=== PATIENT | male | born 1985 | race Caucasian/White ===

== ENCOUNTER 2025-03-05 12:24 | Emergency (ER) | payer MEDICAID, SELFPAY ==
[2025-03-05 12:26] VITALS: BP 156/95; PULSE 73; RESP 16; TEMP 36.6; O2SAT 97
[2025-03-05] MEDS: Acetaminophen 500 MG TAB 1000 MG PO (13:03)
[2025-03-05] MEDS: Ketorolac 15 MG/ML VIAL IM (13:03)
--- NOTE | 2025-03-05 13:05 | W.ED.GENAD ---
Discharge Plan Disposition Patient Disposition: Home Discharge Details Clinical Impression: Acute myofascial pain ED Provider: Yadiel Gilliam Home Meds and New Rx's Prescriptions: New naproxen 500 mg tablet 500 mg PO BID PRNQty: 14 0RF cyclobenzaprine 5 mg tablet 5 mg PO QHS PRNQty: 7 0RF acetaminophen [Tylenol] 325 mg tablet 975 mg PO ONCE PRNQty: 60 0RF Continued multivitamin [Daily Multi-Vitamin] Tablet 1 tab PO DAILY omeprazole 20 mg capsule,delayed release(DR/EC) 20 mg PO DAILY Discharge Instructions Instructions: Dry Needling Additional Instructions: Please follow-up with your primary care provider regarding your visit to the emergency department today. Be sure to discuss results of all test performed here today to include radiology, and laboratory testing as well as results for any pending cultures. Should your symptoms worsen, or if you develop new concerning symptoms, please return immediately emergency department for further evaluation. HPI General Date/Time Provider Initiated Documentation: 03/05/25 12:43. HPI Narrative: MDM/Narrative: 39-year-old male with back pain likely due to muscle strain from lifting. Differential Diagnosis: - Myofascial pain syndrome: Muscle strain causing tension and inflammation. Trigger point injection administered. Continue Tylenol, NSAIDs, Flexeril at night if sleep disturbances persist. ED Course: - Trigger point injection administered Final Assessment: Back pain likely due to muscle strain from lifting. Trigger point injection administered. Continue Tylenol, NSAIDs, Flexeril at night if sleep disturbances persist. Clinical Impression: - Myofascial pain syndrome Patient Education: Discussed trigger point injection, Tylenol, NSAIDs, Flexeril for sleep disturbances. This document was created with assistance from [employer]. The patient consented to its use. HPI: The patient is a 39-year-old male with a history of lumbar spine surgery, presenting with acute lumbar pain. The onset of lumbar pain occurred on Friday or Friday following the lifting of his toddler and a bicycle. The pain is localized to the lower back and occasionally radiates. It disrupts his sleep. The use of a massager results in the migration of pain. Ibuprofen provides minimal analgesic effect, while the application of ice and IcyHot offers some symptomatic relief. During exacerbations, he resorts to sleeping on the couch. The patient denies a history of hypertension or diabetes mellitus. He is overweight and recently celebrated his 39th birthday. He reports good cardiovascular health. The patient has a history of microdiscectomy and laminectomy at the L5-S1 level performed in 2014 due to sciatic pain and toe immobility. He experienced a favorable postoperative recovery, returning to work within five days. Physical therapy was beneficial in his recovery. Additionally, the patient has a history of a superior labrum anterior to posterior (SLAP) tear in the labrum, with surgery initially planned for August 2019 but not performed. He occasionally experiences deep-seated pain in the back associated with the labral injury. PAST SURGICAL HISTORY: Microdiscectomy and laminectomy at L5-S1 in 2014. ROS: Negative besides as mentioned above Exam: Vital signs: Reviewed. General Appearance: Alert and oriented. No acute distress. HEENT: NCAT, EOMI, not icteric. External ears normal. No rhinorrhea. Moist mucous membranes. Neck: Supple, full range of motion, no observable masses, No meningeal sign. Respiratory: No Respiratory distress. No tachypnea. Cardiovascular: RRR, no edema. Gastrointestinal: Soft, nondistended, No rebound tenderness. Back: No midline tenderness to palpation or palpable step-offs of the C/T/L spine. Left thoracic spinal erecta. Musculoskeletal: Increased muscle tension in lower back compared to contralateral side. Skin: Warm and dry, no rash. Neurological: Normal Gait, Grossly intact. Psychiatric: Appropriate for situation. No memory reproducible tenderness and muscle spasm of the PROCEDURE: Trigger Point Injection. ANESTHESIA: 4 ml of 1% Lidocine with epinephrine was injected subcutaneously into 2 areas of palpable spasm in the left spinal erecta COMPLICATIONS: None. DESCRIPTION OF PROCEDURE: The procedure risks, hazards and alternatives were discussed with the patient and a proper consent was obtained. The area over the myofascial spasm was prepped with alcohol utilizing sterile technique. After isolating it between two palpating fingertips a 30-gauge needle was placed in the center of the myofascial spasms and a negative aspiration was performed. Then 2 cc of Lidocaine 1% with epi was injected into each trigger point. The patient tolerated the procedure well without any apparent difficulties or complications. Related Data Home Medications ?Medication ?Instructions ?Recorded ?Confirmed acetaminophen 325 mg tablet 975 mg (3 x 325 mg) PO ONCE PRN 03/05/25 (Tylenol) #60 tabs cyclobenzaprine 5 mg tablet 5 mg PO QHS PRN #7 tabs 03/05/25 multivitamin (Daily Multi-Vitamin 1 tab PO DAILY 03/05/25 03/05/25 tablet) naproxen 500 mg tablet 500 mg PO BID PRN #14 tabs 03/05/25 omeprazole 20 mg capsule,delayed 20 mg PO DAILY 03/05/25 03/05/25 release Previous Rx's ?Medication ?Instructions ?Recorded acetaminophen 325 mg tablet 975 mg (3 x 325 mg) PO ONCE PRN 03/05/25 (Tylenol) #60 tabs cyclobenzaprine 5 mg tablet 5 mg PO QHS PRN #7 tabs 03/05/25 naproxen 500 mg tablet 500 mg PO BID PRN #14 tabs 03/05/25 Allergies Allergy/AdvReac Type Severity Reaction Status Date / Time No Known Allergies Allergy Verified 03/05/25 12:26 General Stated Complaint: Nk/Back Pain LIS: 4 Course Vital Signs Vital signs: Vital Signs Temperature 36.6 C 03/05/25 12:26 Pulse 73 03/05/25 12:26 Respiratory Rate 16 03/05/25 12:26 Blood Pressure 156/95 H 03/05/25 12:26 Pulse Oximetry 97 03/05/25 12:26 Temperature 36.6 C 03/05/25 12:26 Temperature Source Tympanic 03/05/25 12:26 Pulse 73 03/05/25 12:26 Respiratory Rate 16 03/05/25 12:26 Blood Pressure 156/95 H 03/05/25 12:26 Blood Pressure Position Sitting 03/05/25 12:26 Pulse Oximetry 97 03/05/25 12:26 Oxygen Delivery Method Room Air 03/05/25 12:26 Oxygen Flow Rate 0 03/05/25 12:26 Pain Level 8 03/05/25 12:26 PFSH All Active Problems (Updated 03/05/25 @ 13:11 by Yadiel Gilliam MD) Acute myofascial pain (Acute) Social History Smoking/Tobacco Use Status: Never Smoking risk assessment performed?: Yes Alcohol Intake: current Alcohol Intake frequency: 0-2 drinks per day Alcohol type: other Drug use: Never Substance use type: does not use Do you feel safe at home: Yes Do you feel safe in your relationship?: Yes
[2025-03-05] MEDS: Lidocaine 1% Multi-Dose W/EPI 1/100,000 10 ML VIAL IJ (13:09)
== END 2025-03-05 13:30 | disposition home or self-care (01) ==
PROVIDERS: Emergency Provider General Practice
DX: M54.6 Pain in thoracic spine (principal); M79.7 Fibromyalgia
CPT/HCPCS: 96372; 99283; J1885; J2004